=== PATIENT | male | born 1985 | race African-American/Black ===

== ENCOUNTER 2017-09-27 19:26 | Emergency (ER) | payer MEDICAID ==
[~2017-09-27] VITALS: Ht 185.4 cm; Wt 71.0 kg
[2017-09-27 19:41] VITALS: BP 109/72
[2017-09-27] MEDS ORDERED: FLUORESCEIN SODIUM 1MG/STRIP LEFTEYE ONE (20:15)
== END 2017-09-27 21:09 | disposition home or self-care (01) ==
LOC: ER 19:26
DX: H10.12 Acute atopic conjunctivitis, left eye (principal); F12.10 Cannabis abuse, uncomplicated; Z88.1 Allergy status to other antibiotic agents; Z98.890 Other specified postprocedural states
CPT/HCPCS: 99283

== ENCOUNTER 2017-10-01 13:21 | Emergency (ER) | payer MEDICAID ==
[~2017-10-01] VITALS: Ht 185.4 cm; Wt 71.0 kg
[2017-10-01 14:20] VITALS: BP 136/76
== END 2017-10-01 16:09 | disposition home or self-care (01) ==
LOC: ER 15:49
DX: H10.12 Acute atopic conjunctivitis, left eye (principal); R03.0 Elevated blood-pressure reading, without diagnosis of hypertension; Z88.1 Allergy status to other antibiotic agents
CPT/HCPCS: 99282

== ENCOUNTER 2017-10-13 07:15 | Emergency (ER) | payer MEDICAID ==
[~2017-10-13] VITALS: Ht 182.9 cm; Wt 72.0 kg
[2017-10-13] MEDS ORDERED: FLUORESCEIN SODIUM 1MG/STRIP OP ONE (10:30)
[2017-10-13] MEDS ORDERED: TETRACAINE 0.5% OPHTH DROPS 4ML OP ONE (10:30)
[2017-10-13 12:01] VITALS: BP 119/67
== END 2017-10-13 12:09 | disposition home or self-care (01) ==
LOC: ER 07:20
DX: H10.89 Other conjunctivitis (principal); F12.10 Cannabis abuse, uncomplicated; Z88.0 Allergy status to penicillin
CPT/HCPCS: 99283; Z7610

== ENCOUNTER 2025-01-03 19:33 | Emergency (ER) | payer SELFPAY ==
[~2025-01-03] VITALS: Ht 185.4 cm; Wt 70.0 kg
[2025-01-03 19:35] VITALS: O2SAT 99
[2025-01-03 19:40] VITALS: BP 108/78; PULSE 84; RESP 16; TEMP 36.7; O2SAT 100
[2025-01-03] MEDS ORDERED: POLY10DR18 EACHEYE (20:40)
== END 2025-01-03 21:10 | disposition home or self-care (01) ==
LOC: ER 19:57
DX: H10.89 Other conjunctivitis (principal); F12.90 Cannabis use, unspecified, uncomplicated; Z88.0 Allergy status to penicillin
CPT/HCPCS: 99283

== ENCOUNTER 2025-05-25 17:15 | Emergency (ER) | payer SELFPAY ==
[~2025-05-25] VITALS: Ht 182.9 cm; Wt 70.0 kg
[~2025-05-25 17:15] MED LIST: POLY10DR18 EACHEYE
[2025-05-25 17:29] VITALS: BP 126/80; TEMP 37.1; O2SAT 100
[2025-05-25 17:30] VITALS: PULSE 68; RESP 18; O2SAT 99
[2025-05-25 20:14] LABS: BASOPHILS % 0.6 % (0.0-2.0); EOSINOPHILS % 0.2 % (0.0-5.0); HEMATOCRIT. 44.3 % (42.0-52.0); HEMOGLOBIN. 15.4 g/dL (14.0-18.0); LYMPHOCYTES % 15.3 % (20.0-50.0); MEAN PLATELET VOLUME 8.9 fl (7.4-10.4); MONOCYTES % 4.8 % (2.0-8.0); NEUTROPHILS % 79.1 % (40.0-76.0); PLATELET 218 x1000/uL (130-400); RED BLOOD CELL COUNT 5.15 mill/uL (4.7-6.1); RED CELL DISTRIBUTION WIDTH 12.8 % (11.6-14.6)
[2025-05-25 20:39] LABS: CREATININE 1.1 mg/dL (0.6-1.3); UREA NITROGEN BLOOD 9 mg/dL (9-23)
[2025-05-25 23:01] LABS: TROPONIN I HIGH SENSITIVITY 4 ng/L (3.0-53)
== END 2025-05-25 22:37 | disposition left against medical advice (07) ==
LOC: ER 17:15
DX: R07.89 Other chest pain (principal); Z98.890 Other specified postprocedural states
CPT/HCPCS: 36415; 71045; 80048; 84484; 85025; 93005; 99281

== ENCOUNTER 2025-05-26 09:33 | Emergency (ER) | payer SELFPAY ==
[~2025-05-26] VITALS: Ht 185.4 cm; Wt 83.0 kg
[2025-05-26 09:52] VITALS: O2SAT 97
[2025-05-26 11:47] VITALS: BP 114/64; PULSE 71; RESP 18; TEMP 36.9; O2SAT 98
== END 2025-05-26 11:58 | disposition home or self-care (01) ==
LOC: ER 09:33
DX: R07.89 Other chest pain (principal); R20.2 Paresthesia of skin; Z88.0 Allergy status to penicillin
CPT/HCPCS: 93005; 99283